=== PATIENT | male | born 1995 | race Hispanic/Latino ===

== ENCOUNTER 2024-03-22 08:04 | Emergency (ER) | payer OTHER, MEDICAID, SELFPAY ==
[2024-03-22 08:15] VITALS: BP 120/68; PULSE 73; RESP 16; TEMP 37.4; O2SAT 99; BMI 21.4
--- NOTE | 2024-03-22 08:34 | ED.BACK ---
HPI - Back Pain/Injury General Chief Complaint: Back Pain/Injury Stated Complaint: back pain Time Seen by Provider: 03/22/24 08:10 Source: patient Mode of arrival: Ambulatory Limitations: no limitations History of Present Illness HPI Narrative: Patient is a 29-year-old male who is here for evaluation of left-sided lower back discomfort. He stated that yesterday while he was somewhat twisted he coughed very hard and since that time has had left-sided lower back discomfort. Tried some heat and ice massage last evening without much improvement. He stated that he tried to stand this morning and had quite a bit of pain. No fevers. No urinary symptoms. Related Data Previous Rx's Medication Instructions Recorded cyclobenzaprine 10 mg tablet 10 mg PO TID PRN muscle spasm #20 03/22/24 tabs Review of Systems Constitutional Constitutional: Reports system reviewed and no additional complaints, except as documented Musculoskeletal Musculoskeletal: Reports system reviewed and no additional complaints, except as documented Integumentary/Breasts Skin/Breast: Reports system reviewed and no additional complaints, except as documented Patient History Social History Smoking Status: Never smoker Smoking Status: Never smoker Substance Use Type: marijuana Exam Initial Vital Signs Initial Vital Signs: Vital Signs Temperature 99.4 F 03/22/24 08:15 Pulse Rate 73 03/22/24 08:15 Respiratory Rate 16 03/22/24 08:15 Blood Pressure 120/68 03/22/24 08:15 Pulse Oximetry 99 03/22/24 08:15 Oxygen Delivery Method Room Air 03/22/24 08:15 Back/Spine/Pelvis Other: Patient with palpable muscle spasms on the left side of paraspinal region consistent with where he was having this discomfort. Skin General: no rashes or lesions noted Neuro General: patient alert and patient awake Course Orders Ordered: Discontinued Medications Cyclobenzaprine HCl (Cyclobenzaprine 10 Mg Tablet) 10 mg PO NOW ONE Stop: 03/22/24 08:35 Hydromorphone HCl (Hydromorphone 1 Mg Inj) 1 mg IM NOW ONE Stop: 03/22/24 08:35 Ketorolac Tromethamine (Ketorolac 30 Mg/Ml Vial) 30 mg IM NOW ONE Stop: 03/22/24 08:35 Vital Signs Vital signs: Vital Signs - 8 hr 03/22/24 08:15 Temperature 99.4 F Pulse Rate 73 Respiratory Rate 16 Blood Pressure 120/68 Pulse Oximetry 99 Oxygen Delivery Method Room Air MDM - Back Pain/Injury MDM Narrative Medical decision making narrative: Physical exam is consistent with a muscle spasm in his left-sided lumbar region. Low suspicion for fracture. No indication for radiologic studies. Symptomatic treatment for now and ambulate as tolerated. Discharge Plan Departure Patient Disposition: Home Clinical Impression: Strain of lumbar region Instructions: DI for Low Back Pain, DI for Muscle Strain Activity Restrictions/Additional Instructions: I do recommend continued conservative measures with heat/ice/massage. Also continue with anti-inflammatories such as Motrin and Naprosyn. You can also try [id number] lidocaine patches. Take the muscle relaxers as needed and as directed. Return to the emergency department for new symptoms. Prescriptions: New cyclobenzaprine 10 mg tablet 10 mg PO TID PRN (Reason: muscle spasm) Qty: 20 0RF Stand Alone Forms: Patient Portal/API, Work Release Note
[2024-03-22] MEDS: CYCLOBENZAPRINE 10 MG TABLET PO (08:40)
[2024-03-22] MEDS: HYDROMORPHONE 1 MG INJ IM (08:40)
[2024-03-22] MEDS: KETOROLAC 30 MG/ML VIAL IM (08:43)
--- NOTE | 2024-03-22 08:52 | PC.NURSE ---
Pt states he was coughing so hard he hurt his right lower back--states he feels like he pulled a msucle. respirations regular and unlabored. pt elected to use a wheelchair for pain management when moving about the department (and out to car)
== END 2024-03-22 08:54 | disposition home or self-care (01) ==
PROVIDERS: Emergency Provider Emergency Medicine
DX: S39.012A Strain of muscle, fascia and tendon of lower back, initial encounter (principal); X50.1XXA Overexertion from prolonged static or awkward postures, initial encounter
CPT/HCPCS: 96372; 99283; J1170; J1885

== ENCOUNTER 2024-09-16 19:25 | Emergency (ER) | payer OTHER, SELFPAY ==
[2024-09-16] VITALS (8 sets, daily range): BP systolic 105–122; BP diastolic 55–73; PULSE 72–83; RESP 11–24; TEMP 37.1; O2SAT 95–99; BMI 21.4
--- NOTE | 2024-09-16 19:39 | EKG_ITS ---
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
--- NOTE | 2024-09-16 19:44 | ED.CHESTPAIN ---
HPI - Chest Pain General Chief Complaint: Chest Pain Stated Complaint: heart issue, fainting x30 days Time Seen by Provider: 09/16/24 19:27 Source: patient Mode of arrival: Ambulatory Limitations: no limitations History of Present Illness HPI narrative: Patient was a 29-year-old male. Approximately 3 weeks ago he was admitted to an outside facility and diagnosed with pericarditis. Had labs and an echocardiogram which were relatively unremarkable. Was discharged home on colchicine. He was also taking pantoprazole. Took ibuprofen for proximally 10 days but then stopped taking it because his prescription ran out. At the time he did not have a primary doctor but he does have 1 now. He was followed up with the primary doctor. He was recently started on hydroxyzine because of some issues with anxiety. He states that since he was admitted to the hospital he feels like his symptoms are improving somewhat but he was still having palpitations. Also having some shortness of breath with exertion. No cough. Had a subjective fever yesterday but nothing today. No abdominal pain or nausea vomiting. Is still taking the colchicine. He does have follow up with his primary doctor scheduled for approximately 20 days from now. Related Data Previous Rx's Medication Instructions Recorded cyclobenzaprine 10 mg tablet 10 mg PO TID PRN muscle spasm #20 03/22/24 tabs ibuprofen 400 mg tablet See Rx Instructions .Route 09/16/24 .COMPLEX #90 tabs Allergies Allergy/AdvReac Type Severity Reaction Status Date / Time No Known Drug Allergies Allergy Verified 09/16/24 19:36 Review of Systems Review of Systems ROS Unobtainable: All systems reviewed & are unremarkable except as noted in HPI and below Patient History Social History Smoking Status: Current every day smoker Smoking Status: Current every day smoker Exam Initial Vital Signs Initial Vital Signs: Vital Signs Temperature 98.7 F 09/16/24 19:28 Pulse Rate 79 09/16/24 19:28 Respiratory Rate 18 09/16/24 19:28 Blood Pressure 122/70 09/16/24 19:28 Pulse Oximetry 97 09/16/24 19:28 Oxygen Delivery Method Room Air 09/16/24 19:28 Const General: cooperative, comfortable and No ill appearing HENMT Head: normal to inspection and normocephalic Resp Effort & Inspection: normal respiratory effort Auscultation: clear to auscultation bilaterally Cardio Rate: regular rate Rhythm: regular rhythm Skin General: no rashes or lesions noted Neuro General: patient alert, patient awake and moves all extremities Extrem General: normal to inspection and capillary refill normal Course Orders Ordered: ED Orders 09/16/24 19:27 EKG-12 Lead Stat 09/16/24 19:51 XR chest 2V Stat 09/16/24 19:55 CRP [C-Reactive Protein Quant] Stat Complete Blood Count AUTO DIFF Stat Comprehensive Metabolic Panel Stat ESR [Erythrocyte Sedimentation Rate] Stat Troponin & CK Cardiac Panel Stat Discontinued Medications Ketorolac Tromethamine (Ketorolac 30 Mg/Ml Vial) 15 mg IV NOW ONE Stop: 09/16/24 21:27 Last Admin: 09/16/24 21:35 Dose: 15 mg Documented By: SYED Vital Signs Vital signs: Vital Signs - 8 hr 09/16/24 19:28 09/16/24 19:40 09/16/24 19:41 Temperature 98.7 F Pulse Rate 79 74 76 Respiratory Rate 18 15 13 Blood Pressure 122/70 Pulse Oximetry 97 95 98 Oxygen Delivery Method Room Air 09/16/24 19:41 09/16/24 20:00 09/16/24 20:01 Temperature Pulse Rate 83 80 Respiratory Rate 24 Blood Pressure 108/73 Pulse Oximetry 98 97 Oxygen Delivery Method 09/16/24 20:01 09/16/24 20:30 09/16/24 20:30 Temperature Pulse Rate 73 Respiratory Rate 19 Blood Pressure 109/68 113/55 L Pulse Oximetry 99 Oxygen Delivery Method 09/16/24 21:00 09/16/24 21:00 09/16/24 21:30 Temperature Pulse Rate 72 Respiratory Rate 11 L Blood Pressure 105/64 108/68 Pulse Oximetry 99 Oxygen Delivery Method 09/16/24 21:30 Temperature Pulse Rate 75 Respiratory Rate 23 Blood Pressure Pulse Oximetry 98 Oxygen Delivery Method MDM - Chest Pain Medical Records Data Attestation: I reviewed the patient's medical records. Lab Data Attestation: I reviewed the patient's lab results. 09/16/24 19:55 09/16/24 19:55 Labs: Lab Results 09/16/24 Range/Units 19:55 WBC 9.4 (4.5-11.0) X10^3/uL RBC 4.73 (4.5-5.9) X10^6/uL Hgb 14.1 (13.5-17.5) g/dL Hct 41.0 (41-53) % MCV 86.7 (80-100) fL MCH 29.7 (26-34) PG MCHC 34.3 (30-36) % RDW 13.5 (11.6-14.8) % Plt Count 359 (150-400) X10^3/uL Neut % (Auto) 54.1 (50-75) % Lymph % (Auto) 29.5 (25-40) % [place] % (Auto) 10.1 (3-14) % Eos % (Auto) 5.0 H (2-4) % Baso % (Auto) 1.3 (0-2) % Neut # (Auto) 5100 (6030-8135) /uL Lymph # (Auto) 2800 (0006-7828) /uL [place] # (Auto) 900 (0-900) /uL Eos # (Auto) 500 H (0-450) /uL Baso # (Auto) 100 (0-100) /uL ESR 7 (0-15) MM/HR Sodium 139 (137-145) mmol/L Potassium 3.7 (3.4-5.1) mmol/L Chloride 108 H (98-107) mmol/L Carbon Dioxide 23 (22-32) mmol/L BUN 21 H (9-20) mg/dL Creatinine 0.96 (0.66-1.25) mg/dL Estimated GFR > 60 (>60) mL/min BUN/Creatinine Ratio 21.9 (6-22) Glucose 143 H (70-100) mg/dL Calcium 8.9 (8.4-10.2) mg/dL Total Bilirubin 0.4 (0.2-1.3) mg/dL AST 34 (17-59) IU/L ALT 20 (<50) IU/L Alkaline Phosphatase 59 (38-126) U/L Total Creatine Kinase 90 (55-170) U/L Troponin I < 0.012 (0.01-0.034) ng/mL C-Reactive Protein < 0.5 (<1.0) mg/dL Total Protein 6.7 (6.3-8.2) g/dL Albumin 4.2 (3.5-5.0) g/dL Globulin 2.5 (1.7-4.1) g/dL Albumin/Globulin Ratio 1.7 (1.0-2.8) Imaging Data Chest x-ray: Radiologist's Impression: PROCEDURE: XR CHEST 2V INDICATIONS: SOB TECHNIQUE: 2 views of the chest were acquired. COMPARISON: [facility], CR, XR CHEST 1 VIEW, 08/27/2024, 19:33. FINDINGS: Surgical changes and devices: None. Lungs and pleura: Lungs are clear. No pleural effusions or pneumothorax. Mediastinum: Mediastinal contours are normal. Heart size is normal. Bones and chest wall: No suspicious bony abnormalities. Soft tissues appear unremarkable. IMPRESSION: No acute cardiopulmonary abnormality is seen. ECG Data Attestation: I personally reviewed and interpreted this ECG as follows: Interpretation: Sinus rhythm Ventricular rate is [address] elevations consistent with pericarditis MDM Narrative Medical decision making narrative: Patient was nontoxic appearing. His chest x-ray is unremarkable. Sinus rhythm on his EKG without ectopy. He does have ST elevations on his EKG which are very consistent with pericarditis and are consistent with his history. His troponin is negative, ESR/CRP and white blood cell count are normal. I did have a discussion with on-call for cardiology. He recommended continuing the colchicine and adding the anti-inflammatory once again. I suspect his discomfort is because of the pericarditis that still needs longer to improve. There was no indication for admission to the hospital today. I have low suspicion for ACS. I did discuss this with the patient. I will refill a prescription for his ibuprofen. Advised that he keep his scheduled follow-up appointment his primary doctor. He was given return precautions. He expressed understanding and agreement. Discharge Plan Departure Patient Disposition: Home Clinical Impression: Pericarditis Instructions: DI for Pericarditis Activity Restrictions/Additional Instructions: I do recommend that you contact your primary care doctor for a follow-up. Continue to take all of your medications as directed. Return to the emergency department for new symptoms. Prescriptions: New ibuprofen 400 mg tablet See Rx Instructions .ROUTE .COMPLEX Qty: 90 2RF Rx Instructions: 2T PO Q8H for 10 days then 1T PO Q8H for 10D then Q8H PRN after No Action cyclobenzaprine 10 mg tablet 10 mg PO TID PRN (Reason: muscle spasm) Qty: 20 0RF Referrals: Michele Long MD [Primary Care Provider] - Stand Alone Forms: Patient Portal/API/Survey, Work Release Note
--- NOTE | 2024-09-16 19:51 | DI.RAD.S_ITS ---
PROCEDURE: XR CHEST 2V INDICATIONS: SOB TECHNIQUE: 2 views of the chest were acquired. COMPARISON: [facility], CR, XR CHEST 1 VIEW, 08/27/2024, 19:33. FINDINGS: Surgical changes and devices: None. Lungs and pleura: Lungs are clear. No pleural effusions or pneumothorax. Mediastinum: Mediastinal contours are normal. Heart size is normal. Bones and chest wall: No suspicious bony abnormalities. Soft tissues appear unremarkable. IMPRESSION: No acute cardiopulmonary abnormality is seen. Dictated by: Luis Sanchez M.D. on 09/16/2024 at 20:31 Approved by: Luis Sanchez M.D. on 09/16/2024 at 20:32
[2024-09-16 20:04] LABS: Add Manual Diff / Slide Review NO; Basophils Absolute Auto 100 /uL (0-100); Basophils Percent Auto 1.3 % (0-2); Eosinophils Absolute Auto 500 /uL (0-450); Hemoglobin 14.1 g/dL (13.5-17.5); Lymphocytes Absolute Auto 2800 /uL (1100-4500); Lymphocytes Percent Auto 29.5 % (25-40); Mean Corpuscular HGB Conc 34.3 % (30-36); Mean Corpuscular Hemoglobin 29.7 PG (26-34); Mean Corpuscular Volume 86.7 fL (80-100); Monocytes Absolute Auto 900 /uL (0-900); Monocytes Percent Auto 10.1 % (3-14); Neutrophils Absolute Auto 5100 /uL (1500-7000); Neutrophils Percent Auto 54.1 % (50-75); Platelet Count 359 X10^3/uL (150-400); Red Blood Cell Count 4.73 X10^6/uL (4.5-5.9); Red Cell Distribution Width 13.5 % (11.6-14.8); White Blood Cell Count 9.4 X10^3/uL (4.5-11.0)
[2024-09-16 20:24] LABS: Erythrocyte Sedimentation Rate 7 MM/HR (0-15)
[2024-09-16 20:33] LABS: Alanine Aminotransferase 20 IU/L (<50); Albumin 4.2 g/dL (3.5-5.0); Albumin Globulin Ratio 1.7 (1.0-2.8); Alkaline Phosphatase 59 U/L (38-126); Aspartate Aminotransferase 34 IU/L (17-59); BUN Creatinine Ratio 21.9 (6-22); Bilirubin Total 0.4 mg/dL (0.2-1.3); Blood Urea Nitrogen 21 mg/dL (9-20); Calcium 8.9 mg/dL (8.4-10.2); Carbon Dioxide 23 mmol/L (22-32); Chloride 108 mmol/L (98-107); Creatine Kinase 90 U/L (55-170); Estimated Glomerular Filt Rate > 60 mL/min (>60); Globulin 2.5 g/dL (1.7-4.1); Glucose 143 mg/dL (70-100); HEMOLYSIS < 15 (0-50); Potassium 3.7 mmol/L (3.4-5.1); Sodium 139 mmol/L (137-145); Total Protein 6.7 g/dL (6.3-8.2)
[2024-09-16 20:37] LABS: C-Reactive Protein Quant < 0.5 mg/dL (<1.0)
[2024-09-16 20:45] LABS: Troponin I < 0.012 ng/mL (0.01-0.034)
[2024-09-16] MEDS: KETOROLAC 30 MG/ML VIAL 15 MG IV (21:35)
== END 2024-09-16 21:46 | disposition home or self-care (01) ==
PROVIDERS: Emergency Provider Emergency Medicine; PCP Internal Medicine
DX: I31.9 Disease of pericardium, unspecified (principal); R06.02 Shortness of breath
CPT/HCPCS: 36415; 71046; 80053; 82550; 84484; 85025; 85651; 86140; 93005; 93010; 96374; 99284; J1885